=== PATIENT | male | born 1945 | race African-American/Black ===

== ENCOUNTER 2016-08-20 08:52 | Day surgery (SDC) | payer OTHER ==
[~2016-08-20] VITALS: Ht 170.2 cm; Wt 77.1 kg
[2016-08-20 09:43] LABS: BASOPHILS % 0.3 % (0.0-2.0); EOSINOPHILS % 0.5 % (0.0-5.0); HEMATOCRIT. 46.2 % (42.0-52.0); HEMOGLOBIN. 14.8 g/dL (14.0-18.0); LYMPHOCYTES % 19.5 % (20.0-50.0); MEAN CORPUSCULAR HEMOGLOBIN 28.7 pg (28.0-32.0); MEAN CORPUSCULAR HGB CONC 32.1 g/dL (31.0-37.0); MEAN CORPUSCULAR VOLUME 89.6 fL (80.0-94.0); MONOCYTES % 6.6 % (2.0-8.0); NEUTROPHILS % 73.1 % (40.0-76.0); PLATELET 205 x1000/uL (130-400); RED BLOOD CELL COUNT 5.16 mill/uL (4.7-6.1); RED CELL DISTRIBUTION WIDTH 13.9 % (11.6-14.6); WHITE BLOOD COUNT 10.1 x1000/uL (4.5-11.0)
[2016-08-20] MEDS ORDERED: BALANCED SALT IRRIG SOLN COMB1 500ML OP ONE (09:45)
[2016-08-20] MEDS ORDERED: MULT-1146 PO (09:55)
[2016-08-20] MEDS ORDERED: TROPICAMIDE 1% OPHTH DROPS 15ML LEFTEYE SCH (10:00)
[2016-08-20] MEDS ORDERED: PHENYLEPHRINE 2.5% OPHTH 15 DROP/ML BOTTLE LEFTEYE ONE (10:00)
[2016-08-20] MEDS ORDERED: TOBRAMYCIN/DEXAMETH 0.1/0.3% OPHTH SUSP 2.5ML ONE (10:06)
[2016-08-20] MEDS ORDERED: HYALURONATE SODIUM 14 MG/ML 0.85ML SYRINGE IO ONE (10:07)
[2016-08-20] MEDS ORDERED: LACTATED RINGERS 1,000 ML IV SCH (10:15)
[2016-08-20] MEDS ORDERED: HOMATROPINE HBR 5% OPHTH 5ML ONE (10:46)
[2016-08-20] MEDS ORDERED: METHYLPREDNISOLONE SOD SUCC 40 MG/ML VIAL ONE (10:47)
[2016-08-20] MEDS ORDERED: MIDAZOLAM HCL 2 MG/2 ML VIAL ONE (11:06)
[2016-08-20] MEDS ORDERED: FENTANYL CITRATE/PF 50MCG/ML 2ML VIAL ONE (11:07)
[2016-08-20] MEDS ORDERED: PROPOFOL 200MG/20ML VIAL IV ONE (11:44)
[2016-08-20] MEDS ORDERED: ACETYLCHOLINE CHLORIDE INTRAOCULAR SOLUTION 1:100 ELECTROLYTE DILUENT IO ONE (13:33)
[2016-08-20] MEDS ORDERED: GENTAMICIN SULF 40MG/ML 2ML VIAL ONE (13:33)
[2016-08-20] MEDS ORDERED: PHENYLEPHRINE HCL 2.5% OPHTH DROPS 2ML ONE (13:33)
[2016-08-20] MEDS ORDERED: BALANCED SALT IRRIG SOLN 15ML ONE (13:33)
[2016-08-20] MEDS ORDERED: NEO/POLYMYX B SULF/DEXAMETH OPHTH OINT 3.5GM ONE (13:33)
[2016-08-20] MEDS ORDERED: TROPICAMIDE 1% OPHTH DROPS 15ML ONE (13:33)
[2016-08-20] MEDS ORDERED: BUPIVACAINE HCL/PF 0.75% (7.5MG/ML) 10ML ONE (13:33)
[2016-08-20] MEDS ORDERED: TETRACAINE 0.5% OPHTH DROPS 2ML ONE (13:33)
[2016-08-20] MEDS ORDERED: CIPROFLOXACIN 0.3% OPHTH SOLN 2.5ML ONE (13:33)
[2016-08-20] MEDS ORDERED: LIDOCAINE HCL 2%/EPINEPHRINE 1:100,000 20 ML VIAL INFIL ONE (13:33)
== END 2016-08-20 12:45 | disposition home or self-care (01) ==
LOC: OR 08:52
PROVIDERS: ATTEND Ophthalmology
DX: H26.9 Unspecified cataract (principal)
CPT/HCPCS: 36415; 66984; 67010; 80051; 82947; 84520; 85025; J1580; J2250; J2920; J3010; J3490; J7120; V2632; J2704

== ENCOUNTER 2017-08-29 09:39 | Emergency (ER) | payer OTHER ==
[~2017-08-29] VITALS: Ht 177.8 cm; Wt 72.0 kg
[~2017-08-29 09:39] MED LIST: MULT-1146 PO
[2017-08-29] MEDS ORDERED: KETOROLAC 30MG/ML VIAL IV STA (10:49)
[2017-08-29] MEDS ORDERED: ONDANSETRON HCL 4MG/2ML VIAL IV STA (10:49)
[2017-08-29] MEDS ORDERED: SODIUM CHLORIDE 0.9% 1,000 ML IV ONE (10:49)
[2017-08-29 11:00] VITALS: BP 140/64
== END 2017-08-29 11:15 | disposition home or self-care (01) ==
LOC: ER 10:19
DX: M25.512 Pain in left shoulder (principal); Z98.890 Other specified postprocedural states
CPT/HCPCS: 99282; J7030

== ENCOUNTER 2017-10-16 13:25 | Emergency (ER) | payer OTHER ==
[~2017-10-16] VITALS: Ht 180.3 cm; Wt 62.0 kg
[2017-10-16] MEDS ORDERED: nystatin (13:45)
[2017-10-16] MEDS ORDERED: MEGE400O23 PO (13:45)
[2017-10-16 14:55] LABS: BASOPHILS % 0.2 % (0.0-2.0); EOSINOPHILS % 0.2 % (0.0-5.0); HEMATOCRIT. 40.7 % (42.0-52.0); HEMOGLOBIN. 13.8 g/dL (14.0-18.0); LYMPHOCYTES % 23.4 % (20.0-50.0); MEAN CORPUSCULAR HEMOGLOBIN 29.9 pg (28.0-32.0); MEAN CORPUSCULAR VOLUME 88.4 fL (80.0-94.0); MEAN PLATELET VOLUME 8.9 fl (7.4-10.4); MONOCYTES % 7.8 % (2.0-8.0); NEUTROPHILS % 68.4 % (40.0-76.0); PLATELET 249 x1000/uL (130-400); RED BLOOD CELL COUNT 4.61 mill/uL (4.7-6.1); RED CELL DISTRIBUTION WIDTH 13.6 % (11.6-14.6)
[2017-10-16 14:56] LABS: CHLORIDE 107 mEq/L (98-107)
[2017-10-16 15:24] LABS: KETONES URINE 1+ (NEGATIVE); LEUKOCYTE ESTERASE URINE NEGATIVE (NEGATIVE); NITRITE URINE NEGATIVE (NEGATIVE); OCCULT BLOOD URINE NEGATIVE (NEGATIVE); PROTEIN URINE TRACE (NEGATIVE); SPECIFIC GRAVITY URINE 1.022 (1.005-1.030)
[2017-10-16 15:32] LABS: CLARITY URINE CLEAR (CLEAR); COLOR URINE YELLOW (YELLOW)
[2017-10-16 15:34] LABS: *AMPHETAMINES SCREEN URINE NEGATIVE (NEGATIVE)
[2017-10-16 15:35] LABS: *BARBITURATES SCREEN URINE NEGATIVE (NEGATIVE); *BENZODIAZEPINES SCREEN URINE NEGATIVE (NEGATIVE); *COCAINE SCREEN URINE NEGATIVE (NEGATIVE); METHADONE URINE SCREEN NEGATIVE (NEGATIVE); OPIATES URINE SCREEN NEGATIVE (NEGATIVE); PHENCYCLIDINE URINE SCREEN NEGATIVE (NEGATIVE)
[2017-10-16 15:36] LABS: CANNABINOID URINE SCREEN NEGATIVE (NEGATIVE)
[2017-10-16 19:41] VITALS: BP 134/78
== END 2017-10-16 19:40 | disposition home or self-care (01) ==
LOC: ER 16:16
DX: F41.0 Panic disorder [episodic paroxysmal anxiety] (principal); R45.851 Suicidal ideations
CPT/HCPCS: 36415; 80053; 80305; 81003; 85025; 99284

== ENCOUNTER 2021-06-20 16:41 | Emergency (ER) | payer OTHER, MEDICAID ==
[~2021-06-20] VITALS: Ht 180.3 cm; Wt 73.0 kg
[~2021-06-20 16:41] MED LIST changes: +ALBU90AE INH; +LEVO500T2 MT; +MEMA1CAP3 MT; -MULT-1146 PO
[2021-06-20] MEDS ORDERED: SODIUM CHLORIDE 0.9% 1,000 ML IV ONE (17:15)
[2021-06-20 17:28] LABS: BASOPHILS % 0.1 % (0.0-2.0); HEMOGLOBIN. 11.6 g/dL (14.0-18.0); LYMPHOCYTES % 11.9 % (20.0-50.0); MEAN CORPUSCULAR VOLUME 89.2 fL (80.0-94.0); MEAN PLATELET VOLUME 9.1 fl (7.4-10.4); MONOCYTES % 4.5 % (2.0-8.0); NEUTROPHILS % 83.5 % (40.0-76.0); PLATELET 271 x1000/uL (130-400); RED BLOOD CELL COUNT 4.15 mill/uL (4.7-6.1); RED CELL DISTRIBUTION WIDTH 14.6 % (11.6-14.6)
[2021-06-20 17:33] LABS: CHLORIDE 107 mEq/L (98-107)
[2021-06-20 17:50] LABS: CLARITY URINE CLEAR (CLEAR); COLOR URINE YELLOW (YELLOW); KETONES URINE TRACE (NEGATIVE); LEUKOCYTE ESTERASE URINE NEGATIVE (NEGATIVE); NITRITE URINE NEGATIVE (NEGATIVE); OCCULT BLOOD URINE NEGATIVE (NEGATIVE); PH URINE 5.5 (4.5-8.0); PROTEIN URINE 1+ (NEGATIVE); SPECIFIC GRAVITY URINE 1.021 (1.005-1.030)
[2021-06-20 20:53] VITALS: BP 106/56
== END 2021-06-20 21:26 | disposition home or self-care (01) ==
LOC: ER 16:41
DX: S90.01XA Contusion of right ankle, initial encounter (principal); D72.829 Elevated white blood cell count, unspecified; D64.9 Anemia, unspecified; R73.9 Hyperglycemia, unspecified; F03.90 Unspecified dementia, unspecified severity, without behavioral disturbance, psychotic disturbance, mood disturbance, and anxiety; W01.0XXA Fall on same level from slipping, tripping and stumbling without subsequent striking against object, initial encounter; Y93.89 Activity, other specified; Y92.89 Other specified places as the place of occurrence of the external cause
CPT/HCPCS: 36415; 70450; 71045; 73610; 80053; 81003; 84484; 85025; 93005; 96360; 99285; J7030